=== PATIENT | male | born 1970 | race African-American/Black ===

== ENCOUNTER 2022-06-17 21:36 | Emergency (ER) | payer OTHER ==
[~2022-06-17] VITALS: Ht 182.9 cm; Wt 115.0 kg
[2022-06-17 21:40] VITALS: BP 186/97
== END 2022-06-18 00:15 | disposition left against medical advice (07) ==
LOC: ER 21:36
DX: Z53.21 Procedure and treatment not carried out due to patient leaving prior to being seen by health care provider (principal); R07.89 Other chest pain
CPT/HCPCS: 93005